=== PATIENT | male | born 1985 | race Two or more races ===

== ENCOUNTER 2023-06-25 20:48 | Emergency (ER) | payer SELFPAY ==
[~2023-06-25] VITALS: Ht 170.2 cm; Wt 104.5 kg
[2023-06-25 21:41] LABS: Basophils # (auto) 0.1 10 ^3/uL (0-0.2); Basophils % (auto) 1.3 % (0.0-2.0); Eosinophils # (auto) 0.1 10 ^3/uL (0-0.8); Eosinophils % (auto) 0.5 % (0.0-7.0); Hematocrit 42.3 % (41.0-53.0); Hemoglobin 14.5 g/dL (13.5-17.5); Lymphocytes # (auto) 2.4 10 ^3/uL (0.4-5.4); Lymphocytes % (auto) 21.7 % (10.0-50.0); Mean Corpuscular Hemoglobin 29.9 pg (28.0-32.0); Mean Corpuscular Hgb Conc. 34.2 g/dL (32.0-36.0); Mean Corpuscular Volume 87.5 fL (80.0-100.0); Monocytes # (auto) 0.8 10 ^3/uL (0-1.3); Monocytes % (auto) 7.6 % (0.0-12.0); Neutrophils # (auto) 7.6 10 ^3/uL (1.6-8.6); Neutrophils % (auto) 68.9 % (37.0-80.0); Nucleated Red Blood Cells % 0.1 %; Red Blood Cells 4.84 10^6/uL (4.5-5.90); Red Cell Distribution Width 13.4 % (11.8-14.3)
[2023-06-25 22:03] LABS: Alanine Aminotransferase 45 U/L (7-40); Albumin 4.9 g/dL (3.2-4.8); Alkaline Phosphatase 110 U/L (46-116); Anion Gap 9 (5-15); Aspartate Aminotransferase 19 U/L (13-40); BUN/Creatinine Ratio 12.9 (10.0-20.0); Blood Urea Nitrogen 13 mg/dL (9-23); Calcium 9.7 mg/dL (8.7-10.4); Carbon Dioxide 25 mmol/L (20-30); Chloride 104 mmol/L (98-107); Glucose 148 mg/dL (74-106); Magnesium 1.9 mg/dL (1.6-2.6); Potassium 3.3 mmol/L (3.5-5.1); Sodium 138 mmol/L (136-145)
[2023-06-25 22:04] LABS: Bilirubin, Total 0.3 mg/dL (0.2-1.0); Total Protein 8.2 g/dL (5.7-8.2)
[2023-06-25 22:12] LABS: Partial Thromboplastin Time 28.2 SEC (24.5-34.5); Prothrombin Time 10.5 sec (9.3-11.8)
[2023-06-26] MEDS ORDERED: LORazepam 0.5 MG TAB PO ONE (00:30)
[2023-06-26] MEDS ORDERED: IBUPROFEN 800 MG TAB PO ONE (00:30)
[2023-06-26] MEDS ORDERED: SODIUM CHLORIDE 0.9% 1,000 ML IV ONE (00:45)
[2023-06-26] MEDS ORDERED: IBUP1TAB5 PO (00:59)
[2023-06-26] MEDS ORDERED: HYDR25CA PO (00:59)
[2023-06-26] MEDS ORDERED: POTASSIUM CHL 20 Meq TABLET PO ONE (01:00)
[2023-06-26] MEDS ORDERED: PRED20TA2 PO (01:37)
[2023-06-26] MEDS ORDERED: ALBUAER3 IN (01:37)
[2023-06-26] MEDS ORDERED: AZITTAB PO (01:37)
[2023-06-26 02:12] VITALS: BP 131/73; PULSE 97; RESP 18; TEMP 98.3; O2SAT 99
== END 2023-06-26 01:37 | disposition home or self-care (01) ==
LOC: ER 20:48 → EDBD 20:48 → ER 06-26 01:37
DX: J20.9 Acute bronchitis, unspecified (principal); R07.89 Other chest pain; F41.9 Anxiety disorder, unspecified; I10 Essential (primary) hypertension
CPT/HCPCS: 36415; 71045; 80053; 83735; 83880; 84484; 85025; 85610; 85730; 93005